=== PATIENT | male | born 1990 | race Caucasian/White ===

== ENCOUNTER 2016-12-07 02:10 | Emergency (ER) | payer OTHER ==
[~2016-12-07] VITALS: Ht 175.3 cm; Wt 79.5 kg
[2016-12-07 02:24] VITALS: Ht 175.3 cm; Wt 79.5 kg
[2016-12-07] MEDS ORDERED: IBUP-1542 PO (02:25)
[2016-12-07] MEDS ORDERED: IBUPROFEN 600 MG TAB PO ONE (02:30)
[2016-12-07] MEDS ORDERED: NEOMYC/POLYMYX/BACIT 30 GM OINT TOP ONE (02:30)
--- NOTE | 2016-12-07 02:40 | RADRPT ---
PROCEDURE: CT Brain without contrast. CLINICAL INDICATION: Trauma. Pain. . TECHNIQUE: Serial axial computed tomographic images of the brain was performed on a CT scanner fro m the skull base through the vertex without contrast. Exam CTDlvol = 45 mGy and DLP = 810 mGy-cm. COMPARISON: None available. FINDINGS: There is no fracture. The ventricles and sulci are normal in size and configuration. There is no m idline shift. There are no focal parenchymal abnormalities. There is no acute stroke. No acute in tracranial hemorrhage or abnormal extra-axial fluid collection. There is partial opacification of the partially visualized bilateral ethmoid air cells and maxillary sinuses. IMPRESSION: 1. No acute post-traumatic abnormality. 2. Paranasal sinus opacification. RPTAT: HMVK .Paul Barry MD, Date Time Electronically viewed and signed by .Paul Barry MD, on 12/07/2016 02:40 .K/
--- NOTE | 2016-12-07 03:19 | RADRPT ---
PROCEDURE: CHEST - 1 VIEW CLINICAL INDICATION: 26-year-old male with chest pain. TECHNIQUE: A single frontal AP view of the chest was performed portably. The images were reviewed on a PACS workstation. COMPARISON: None. FINDINGS: The cardiomediastinal silhouette has a normal appearance. There is no evidence for an infiltrate. T he pulmonary vascularity is within normal limits. There is no evidence for pneumothorax or pneumomed iastinum. The osseous structures are intact. IMPRESSION: No evidence for active cardiopulmonary disease. .Dilan Olmstead MD, MD Date Time Electronically viewed and signed by .Dilan Olmstead MD, on 12/07/2016 03:18 .M/
--- NOTE | 2016-12-07 03:20 | RADRPT ---
PROCEDURE: LEFT HAND - 3 VIEWS CLINICAL INDICATION: 26-year-old male with left hand pain. TECHNIQUE: AP, lateral and oblique views of the left hand were obtained. The images reviewed on a PACS workstation. COMPARISON: None. FINDINGS: The bones of the hand appear intact, with no evidence of fracture, dislocation, or subluxation. The joint spaces are preserved. Bone mineralization is within normal limits. No radiopaque foreign body is seen. IMPRESSION: Unremarkable left hand radiographs. .Dilan Olmstead MD, MD Date Time Electronically viewed and signed by .Dilan Olmstead MD, MD on 12/07/2016 03:19 .M/
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
== END 2016-12-07 02:59 ==
LOC: E/R 02:10
DX: S00.01XA Abrasion of scalp, initial encounter (principal); S63.92XA Sprain of unspecified part of left wrist and hand, initial encounter; S60.512A Abrasion of left hand, initial encounter; F17.210 Nicotine dependence, cigarettes, uncomplicated; R07.9 Chest pain, unspecified; R51 Headache; W51.XXXA Accidental striking against or bumped into by another person, initial encounter; Y92.9 Unspecified place or not applicable
CPT/HCPCS: 70450; 71010